=== PATIENT | male | born 1965 | race Caucasian/White ===

== ENCOUNTER 2025-06-29 09:35 | Emergency (ER) | payer OTHER, SELFPAY ==
[2025-06-29 09:36] VITALS: BP 163/86
--- NOTE | 2025-06-29 10:00 | ED.GENMED ---
History of Present Illness
General
Chief Complaint: Flank Pain
Source: patient
Exam Limitations: none
Time Seen by Provider: 06/29/25 09:55
Nursing documentation reviewed up to this point in time: agreed with
History of Present Illness
History of Present Illness:
Patient presents to ED secondary to sudden onset of right flank/lower back pain, associated with nausea, vomiting, and nonbloody diarrhea since 4 AM this morning, while he was at work. Patient states that his symptoms are similar to what he
experienced 18 years ago when he was diagnosed with kidney stones. Denies fever or chills. Denies trauma. Denies recent illness. Denies recent change in medications or diet. Denies recent travel. Patient states that he is eating more healthy
recently, and has lost approximately 20 pounds of weight over the past 3 months.
Past History
Past History
ED Past Medical History: None
ED Past Surgical History: None
Social History
Tobacco: Non-smoker
Personal:
Living: with family
Employment: Employed
Review of Systems
Review of Systems
Allergies reviewed?: Yes
All Other Systems: ROS reviewed and negative except as documented in HPI and ROS
Constitutional: Reports no symptoms; Denies fever
Respiratory: Reports no symptoms
Cardiac: Reports no symptoms; Denies chest pain
ABD/GI: Reports nausea, vomiting and diarrhea
: Reports flank pain
Musculoskeletal: Reports back pain
Skin: Reports no symptoms
Neurological: Reports no symptoms
Phy Exam
Physical Exam
Physical Exam:
Physical Exam
General: mild painful distress, not acutely ill. afebrile
Head: nc/at. eomi
Neck: supple. normal range of motion.
Heart: s1/s2 regular rate and rhythm,
Lungs: no acute respiratory distress. clear bilaterally
Abdomen: normal bowel sounds. not tender.
Neuro: alert and oriented x 3. no focal neurological deficits
Skin: no rash
Psychiatric: well kept. interactive and cooperative
Extremities: no edema. no calf tenderness.
Course
Orders/Labs/Results
Orders:
Orders
06/29/25 09:59
Ketorolac [Toradol] 15 mg IV NOW STA
06/29/25 10:00
0.9% Sodium Chloride 1000 ml [Nss] 1,000 ml IV BOLUS
Ketorolac [Toradol] 15 mg .ROUTE .STK-MED ONE
Ondansetron Injectable [Zofran] 4 mg .ROUTE .STK-MED ONE
Ondansetron Injectable [Zofran] 4 mg IV NOW STA
06/29/25 10:13
CT Abd/pel Without Iv Or Oral Urgent
Comment:
Reason For Exam: right flank pain w hx kidney stone
06/29/25 10:17
Basic Metabolic Panel Urgent
Complete Blood Count/No Diff Urgent
Urinalysis Reflex To Culture Urgent
Date Specimen was Collected: 06/29/25
Time Specimen was Collected: 10:13
Urine Microscopic Reflex Cult Urgent
06/29/25 10:28
HYDROmorphone [Dilaudid] 0.5 mg .ROUTE .STK-MED ONE
HYDROmorphone [Dilaudid] 0.5 mg IV NOW STA
06/29/25 12:39
Morphine Sulfate 4 mg IV NOW STA
Abnormal Lab Results
06/29/25
10:17
RBC 4.53 L 10^6/uL
(4.70-6.10)
MCV 99.1 H fL
(80.0-94.0)
MCH 32.7 H pg
(27.0-31.0)
BUN 25 H mg/dl
(9-20)
Glucose 165 H mg/dl
(70-99)
Urine Ketones 3+ A
(Negative)
Ur Occult Blood Reflex 2+ A
(Negative)
Urine RBC 3-6 A /HPF
(0-2)
Urine Bacteria (Reflex) Few A
(Negative)
Urine Albumin (Reflex) 1+ A
(Neg - Trace)
06/29/25 10:17
06/29/25 10:17
Vital Signs
Initial and Last Documented VS:
Initial Vital Signs
Temp Pulse Resp BP Pulse Ox
97.5 F 60 20 163/86 100
06/29/25 09:36 06/29/25 09:36 06/29/25 09:36 06/29/25 09:36 06/29/25 09:36
Last Documented Vital Signs
Temp Pulse Resp BP Pulse Ox
97.5 F 60 18 132/76 99
06/29/25 09:36 06/29/25 12:00 06/29/25 12:00 06/29/25 12:00 06/29/25 12:00
MDM/Problems Addressed
MDM/Problems Addressed:
History, exam, and CT scan consistent with renal colic. Patient reports significant improvement symptoms after treatment. Patient is able to void freely without any difficulty in ED. Patient feels comfortable going home at this time. Patient
will be discharged with urine strainer, with referral to urology for an outpatient follow-up. Return precautions provided, i.e. fever/worsening pain/inability to urinate. Patient otherwise is afebrile, hemodynamically stable, and appears
comfortable, at time of discharge, to the care of her son.
*Pulse Oximetry
SaO2: 100
Oxygen Mode of Delivery: Room air
ED Attending Note
-
Portions of this chart may have been created with voice recognition software.� Occasional wrong word or��sound alike� substitutions may have occurred due to the inherent limitations of voice recognition software.
Discharge Plan
Departure
Patient Disposition: Home (Routine Discharge)
Date of Disposition: 06/29/25
Time of Disposition: 13:32
Patient with high blood pressure during this ER visit?: Yes
Condition: Fair
Discharge Problem:
Renal colic
Instructions: Renal Colic (DC), How to Strain Your Urine
Prescriptions:
New
oxycodone-acetaminophen [Percocet] 5-325 mg Tablet
1 tab PO Q6HPRN PRN (Reason: pain) Qty: 5 0RF
ondansetron 4 mg Tablet,Disintegrating
4 mg PO TIDPRN PRN (Reason: nausea/vomiting) Qty: 12 0RF
tamsulosin 0.4 mg capsule
0.4 mg PO DAILY Qty: 7 0RF
ketorolac 10 mg tablet
10 mg PO Q8H PRN (Reason: Pain) Qty: 14 0RF
Rx Instructions:
maximum total duration of 5 days from all oral, intranasal, or parenteral formulations
No Action
multivitamin [Daily Multiple] 1 EACH tablet
1 ea PO DAILY
tamsulosin 0.4 MG capsule
0.4 mg PO DAILY Qty: 10 0RF
hydrocodone-acetaminophen [Vicodin] 1 EACH tablet
1 ea PO Q4HPRN PRN (Reason: pain) Qty: 20 0RF
ondansetron 4 MG tablet,disintegrating
4 mg PO TIDPRN PRN (Reason: NAUSEA) Qty: 15 0RF
Referrals:
Madan Lincoln MD [Active, Urology]
Bo Sofia DO [Family Provider, Family Practice]
Activity Restrictions/Additional Instructions:
As discussed, please follow-up with referred to urologist for further evaluation and treatment. Please consider return to ED with worsening symptoms, i.e. fever/worsening pain/inability to urinate. Your prescriptions have been sent electronically
to [facility] pharmacy in [place].
Interventions
Interventions:
*General Assessment Last Done: 06/29/25 09:36
*Neglect/Abuse Screening Last Done: 06/29/25 09:36
*ED- Fall Risk Assessment Last Done: 06/29/25 11:04
*ED COVID-19 Vaccine History Last Done: 06/29/25 11:04
*ED Influenza Vaccine History Last Done: 06/29/25 11:04
UM-Hqikhn-Pefamvzrco Assessment Last Done: 06/29/25 10:21
ED-Male Genitourinary Assessment Last Done: 06/29/25 10:21
Discharge Date and Time
Print Language: UKRAINIAN
[2025-06-29] MEDS: ZOFRAN 4 MG IV (10:10)
[2025-06-29] MEDS: TORADOL 15 MG IV (10:10)
[2025-06-29] MEDS: NSS 1000 IV (10:10)
[2025-06-29 10:28] LABS: Hematocrit 44.9 % (39.0-52.0); Hemoglobin 14.8 g/dL (13.0-18.0); Mean Corp Hgb Conc. 33.0 g/dL (33.0-37.0); Mean Corpuscular Volume 99.1 fL (80.0-94.0); Platelet Count 205 10^3/uL (130-400); Red Cell Dist. Width 13.7 % (11.5-14.5)
[2025-06-29] MEDS: DILAUDID 0.5 MG IV (10:29)
[2025-06-29 10:41] LABS: Blood Urea Nitrogen 25 mg/dl (9-20); Calcium 9.9 mg/dl (8.4-10.2); Carbon Dioxide 27 mmol/L (22-30); Chloride 100 mmol/L (98-107); Glucose 165 mg/dl (70-99); Potassium 4.7 mmol/L (3.5-5.1); Sodium 137 mmol/L (135-145); eGFR > 60.00
[2025-06-29 10:55] LABS: Urine Character Clear (Clear)
[2025-06-29 11:06] LABS: Urine Squamous Cell 0-2 /LPF (Few); Urine White Cell 0-2 /HPF (0-5)
[2025-06-29 12:00] VITALS: BP 132/76
[2025-06-29] MEDS: MORPHINE SULFATE 4 MG IV (12:42)
== END 2025-06-29 14:10 | disposition home or self-care (01) ==
LOC: EMR 09:35
PROVIDERS: EMERGENCY PHYSICIAN Emergency Medicine; FAMILY PHYSICIAN Family Medicine
DX: N23 Unspecified renal colic (principal); R03.0 Elevated blood-pressure reading, without diagnosis of hypertension; Z87.442 Personal history of urinary calculi
CPT/HCPCS: 99284; 96374; 96375 ×3; 96361; 74176; 80048; 81003; 81015; 85027